=== PATIENT | female | born 1945 | race Caucasian/White ===

== ENCOUNTER 2016-03-19 | Outpatient (CLI) | payer MEDICARE, BC | END 2016-03-19 04:03 | disposition critical access hospital (66) | DX: R07.9 Chest pain, unspecified (principal) | CPT/HCPCS: A0425; A0427 ==

== ENCOUNTER 2016-03-19 | Outpatient (CLI) | payer MEDICARE, BC | END 2016-03-19 08:08 | disposition short-term general hospital (02) | DX: R07.9 Chest pain, unspecified (principal) | CPT/HCPCS: A0170; A0425; A0426 ==

== ENCOUNTER 2016-03-19 04:23 | Emergency (ER) | payer MEDICARE, BC | END 2016-03-19 08:06 | disposition short-term general hospital (02) | DX: I20.0 Unstable angina (principal); I10 Essential (primary) hypertension; E78.00 Pure hypercholesterolemia, unspecified; J45.909 Unspecified asthma, uncomplicated; Z79.82 Long term (current) use of aspirin ==

== ENCOUNTER 2016-05-15 11:16 | Outpatient (CLI) | payer MEDICARE, BC | END 2016-05-15 11:17 | disposition home or self-care (01) | DX: E87.6 Hypokalemia (principal) ==

== ENCOUNTER 2016-06-06 07:20 | Outpatient (CLI) | payer MEDICARE, BC | END 2016-06-06 07:21 | disposition home or self-care (01) | DX: I25.10 Atherosclerotic heart disease of native coronary artery without angina pectoris (principal) ==

== ENCOUNTER 2017-06-10 08:00 | Outpatient (CLI) | payer MEDICARE, BC | END 2017-06-10 08:01 | disposition home or self-care (01) | LOC: LAB.R 08:00 | PROVIDERS: ATTEND Family Medicine | DX: N39.0 Urinary tract infection, site not specified (principal) | CPT/HCPCS: 87086 ==

== ENCOUNTER 2017-09-26 08:00 | Outpatient (CLI) | payer MEDICARE, BC ==
[2017-09-26 12:14] LABS: BASOPHILS % (AUTO) 0.6 %; EOSINOPHILS # (AUTO) 0.2 10^3/uL (0.0-0.7); EOSINOPHILS % (AUTO) 4.1 %; HGB - HEMOGLOBIN 13.4 g/dL (12.0-16.0); LYMPHOCYTES # (AUTO) 2.1 10^3/uL (1.5-3.5); LYMPHOCYTES % (AUTO) 35.6 %; MEAN CORPUSCULAR HEMOGLOBIN 31.8 pg (27.0-31.0); MEAN CORPUSCULAR HGB CONC 33.6 g/dL (32.0-36.0); MEAN CORPUSCULAR VOLUME 94.6 fL (81.0-99.0); MEAN PLATELET VOLUME 8.9 fL (7.9-10.8); MONOCYTES # (AUTO) 0.7 10^3/uL (0.0-1.0); NEUTROPHILS # (AUTO) 2.9 10^3/uL (1.5-6.6); NEUTROPHILS % (AUTO) 48.7 %; PLT - PLATELET COUNT 267 10^3/uL (130-450); RED BLOOD COUNT 4.22 10^6/uL (4.20-5.40); RED CELL DISTRIBUTION WIDTH 14.3 % (12.0-15.0); WHITE BLOOD COUNT 5.9 x10^3/uL (4.8-10.8)
[2017-09-26 12:56] LABS: ALBUMIN 4.1 g/dL (3.2-5.5); ALBUMIN/GLOBULIN RATIO 1.5 (1.0-2.2); ALKALINE PHOSPHATASE 67 IU/L (42-121); ALT ALANINE AMINOTRANSFERASE 16 IU/L (10-60); AST ASPARTATE AMINOTRANSFERASE 22 IU/L (10-42); BILIRUBIN,TOTAL 0.6 mg/dL (0.2-1.0); BUN - BLOOD UREA NITROGEN 18 mg/dL (6-20); CALCIUM 9.4 mg/dL (8.5-10.3); CARBON DIOXIDE - CO2 26 mmol/L (21-32); CHLORIDE 106 mmol/L (101-111); CREATININE 0.7 mg/dL (0.4-1.0); GFR - MDRD 83 (>89); GLUCOSE 96 mg/dL (70-100); SODIUM 140 mmol/L (135-145); TOTAL PROTEIN 6.8 g/dL (6.7-8.2)
== END 2017-09-26 08:01 | disposition home or self-care (01) ==
LOC: LAB.WCP 08:00
PROVIDERS: ATTEND Family Medicine
DX: E16.1 Other hypoglycemia (principal); Z79.899 Other long term (current) drug therapy
CPT/HCPCS: 36415; 80053; 84443; 85025

== ENCOUNTER 2018-08-28 08:00 | Outpatient (CLI) | payer MEDICARE, BC | END 2018-08-28 08:01 | disposition home or self-care (01) | LOC: LAB.R 08:00 | PROVIDERS: ATTEND Family Medicine | DX: N39.0 Urinary tract infection, site not specified (principal) | CPT/HCPCS: 87086 ==

== ENCOUNTER 2018-09-03 11:56 | Outpatient (CLI) | payer MEDICARE, BC ==
[2018-09-03 19:06] LABS: CALCIUM 9.4 mg/dL (8.5-10.3); CREATININE 0.8 mg/dL (0.4-1.0)
== END 2018-09-03 11:57 | disposition home or self-care (01) ==
LOC: LAB.WCP 11:56
PROVIDERS: ATTEND Family Medicine
DX: H93.A2 Pulsatile tinnitus, left ear (principal); R51 Headache
CPT/HCPCS: 36415; 80048; 85651

== ENCOUNTER 2018-11-18 10:22 | Outpatient (CLI) | payer MEDICARE, BC ==
--- NOTE | 2018-11-18 11:38 | XRAY Report ---
Reason: RIGHT SHOULDER PAIN Procedure Date: 11/18/2018 Accession Number: [id number] / [id number] Procedure: WCP - Shoulder 2 View RT CPT Code: FULL RESULT: EXAM: RIGHT SHOULDER RADIOGRAPHY EXAM DATE: 11/18/2018 10:22 AM. CLINICAL HISTORY: RIGHT SHOULDER PAIN. COMPARISON: None. TECHNIQUE: 3 views. FINDINGS: Bones: There is a nondisplaced avulsion fracture of the distal right clavicle seen best on the transscapular Y-view. Joints: The glenohumeral joint is unremarkable. Soft tissues: The visualized hemithorax is unremarkable. No soft tissue swelling. No soft tissue calcifications. IMPRESSION: There is a nondisplaced distal right clavicular avulsion fracture. RADIA
== END 2018-11-18 23:59 | disposition home or self-care (01) ==
LOC: DI.WCP 10:22 → EDSTATUS 12:39 → DI.WCP 23:59
PROVIDERS: ATTEND Family Medicine
DX: S42.034A Nondisplaced fracture of lateral end of right clavicle, initial encounter for closed fracture (principal)

== ENCOUNTER 2018-11-27 09:04 | Outpatient (CLI) | payer MEDICARE, BC | END 2018-11-27 09:05 | disposition home or self-care (01) | LOC: LAB.WCP 09:04 | PROVIDERS: ATTEND Family Medicine | DX: R51 Headache (principal) | CPT/HCPCS: 36415; 85651; 86140 ==

== ENCOUNTER 2018-12-08 04:57 | Emergency (ER) | payer MEDICARE, BC ==
[2018-12-08 05:09] VITALS: BP 138/74
[2018-12-08] MEDS ORDERED: DEXAMETHASONE 10 MG/ML VIAL PO STA (07:45)
[2018-12-08] MEDS ORDERED: ALBUTEROL NEB 2.5 MG/3 ML INH STA (07:45)
[2018-12-08] MEDS ORDERED: CHERRY SYRUP 10 ML UDC PO ONE (07:45)
--- NOTE | 2018-12-08 07:56 | ED Physician Documentation ---
PD HPI URI - Stated complaint Stated Complaint: SORE THROAT, SOA WHILE LAYING DOWN - Chief complaint Chief Complaint: Heent - History obtained from History obtained from: Patient - History of Present Illness Associated symptoms: Nasal congestion, Rhinorrhea, Sore throat. No: Fever, Chills Contributing factors: Sick contact Improves by: Rest Worsened by: Other (Swallowing) - Additional information Additional information: 72-year-old female presents to the emergency department complaining of a sore throat for the past 2 to 3 days. Has rhinorrhea and congestion as well. States that she was treated 3 weeks ago for a "sinus infection". She took doxycycline for this. Last night she felt like she was having a hard time breathing and her throat was worsening. She was restarted on doxycycline yesterday by her doctor. Denies any fevers. Has not been using her albuterol inhaler. She is on Qvar regularly. Review of Systems Constitutional: denies: Fever, Chills Respiratory: denies: Cough GI: denies: Vomiting, Diarrhea Skin: denies: Rash Musculoskeletal: denies: Neck pain, Back pain Neurologic: denies: Headache PD PAST MEDICAL HISTORY - Past Medical History Cardiovascular: High cholesterol Respiratory: Asthma, Pneumonia Endocrine/Autoimmune: None GI: C.difficile, Diverticulitis : None HEENT: Glaucoma Psych: Claustrophobia Musculoskeletal: Osteoarthritis Derm: None - Past Surgical History Past Surgical History: Yes General: Appendectomy, Colonoscopy Ortho: Knee replacement, Carpal Tunnel surgery /[employer]: Hysterectomy, Other HEENT: Tonsil/Adenoidectomy - Present Medications Home Medications: Ambulatory Orders Medication Instructions Recorded Confirmed Albuterol [Ventolin Hfa] 2 puffs INH Q4H PRN 09/18/12 12/29/14 Ciclesonide [Alvesco] 6.1 gm IH BID 09/18/12 12/29/14 Potassium Chloride [Klor-Con] 0 meq PO 09/18/12 12/29/14 Pravastatin Sodium 10 mg PO HS 09/18/12 12/29/14 Triamterene/Hydrochlorothiazid 1 each PO DAILY 09/18/12 12/29/14 [Triamterene-Hctz 37.5-25 mg Tb] Aspirin [Aspir 81] 81 mg PO DAILY 09/28/12 12/29/14 Loratadine [Claritin] 10 mg PO DAILY 05/04/13 12/29/14 Mometasone Furoate [Nasonex] 1 spray NS BID #1 spray.pump 12/08/18 predniSONE [Prednisone] 20 mg PO DAILY #7 tablet 12/08/18 - Allergies Allergies/Adverse Reactions: Allergies Allergy/AdvReac Type Severity Reaction Status Date / Time Penicillins Allergy Severe Respiratory Verified 12/08/18 05:09 celecoxib [From Celebrex] Allergy Intermediate Hives Verified 12/08/18 05:09 rofecoxib [From Vioxx] Allergy Intermediate Hives Verified 12/08/18 05:09 Sulfa (Sulfonamide Allergy Unknown unknown Verified 12/08/18 05:09 Antibiotics) scopolamine AdvReac Intermediate Hallucinati Verified 12/08/18 05:09 ons - Social History Does the pt smoke?: No Smoking Status: Never smoker Does the pt drink ETOH?: No Does the pt have substance abuse?: No - Immunizations Immunizations are current?: Yes - POLST Patient has POLST: No PD ED PE NORMAL - Vitals Vital signs reviewed: Yes - General General: Alert and oriented X 3, No acute distress, Well developed/nourished - HEENT HEENT: PERRL, Ears normal, Moist mucous membranes, Other (Mild posterior oropharyngeal erythema without tonsillar exudates. Uvula midline. No trismus. Normal phonation.) - Neck Neck: Supple, no meningeal sign, Other (Mild cervical lymphadenopathy) - Cardiac Cardiac: RRR, Strong equal pulses - Respiratory Respiratory: No respiratory distress, Clear bilaterally - Abdomen Abdomen: Soft, Non tender, Non distended - Derm Derm: Warm and dry - Extremities Extremities: No edema - Neuro Neuro: Alert and oriented X 3 - Psych Psych: Normal mood, Normal affect Results - Vitals Vitals: Vital Signs - 24 hr 12/08/18 05:04 Temperature 37.2 C Heart Rate 69 Respiratory 17 Rate Blood Pressure 138/74 H O2 Saturation 97 Oxygen O2 Source Room air - Labs Labs: Laboratory Tests 12/08/18 05:10 Group A Strep Rapid Negative PD MEDICAL DECISION MAKING - ED course Complexity details: reviewed results, re-evaluated patient, considered differential, d/w patient, d/w family ED course: 72-year-old female with what appears to be a viral upper respiratory infection. Strep test is negative. No fevers. No indication for antibiotics at this time. We will have her stop the doxycycline. Given a dose of dexamethasone here. Also given albuterol treatment. We will continue supportive care and follow-up with her doctor. Patient counseled regarding signs and symptoms for which I believe and urgent re-evaluation would be necessary. Patient with good understanding of and agreement to plan and is comfortable going home at this time This document was made in part using voice recognition software. While efforts are made to proofread this document, sound alike and grammatical errors may occur. Departure - Departure Disposition: 01 Home, Self Care Clinical Impression: Viral pharyngitis, Viral URI Condition: Good Instructions: ED Pharyngitis Viral Follow-Up: Sami Barnes MD [Primary Care Provider] - As Needed Prescriptions: Mometasone Furoate [Nasonex] 1 spray NS BID #1 spray.pump predniSONE [Prednisone] 20 mg PO DAILY #7 tablet Comments: Use the medications as prescribed. Return if you worsen. You can stop the doxycycline. There is no evidence of a bacterial infection at this time.
== END 2018-12-08 08:31 | disposition home or self-care (01) ==
LOC: ED 04:57
DX: J02.8 Acute pharyngitis due to other specified organisms (principal); B97.89 Other viral agents as the cause of diseases classified elsewhere; J06.9 Acute upper respiratory infection, unspecified; J45.909 Unspecified asthma, uncomplicated; Z79.82 Long term (current) use of aspirin
CPT/HCPCS: 87070; 87430; 94640; 94664; 99283; 99284; A9270

== ENCOUNTER 2019-01-06 15:00 | Outpatient (CLI) | payer MEDICARE, BC ==
--- NOTE | 2019-01-07 08:38 | Mammography Report ---
Reason: ANNUAL MAMMO Procedure Date: 01/06/2019 Accession Number: [id number] / [id number] Procedure: [facility] - Screening Mammo w/Hussain CPT Code: Final Report FULL RESULT: EXAM: Screening Mammo w/Hussain DATE: 01/06/2019 3:59 PM CLINICAL HISTORY: Screening encounter. History of excisional left breast biopsy for benign pathology. Family history of breast cancer in a sister at the age of 55 and a sister at the age of 62. TECHNIQUE: (B) - Bilateral CC and MLO views were obtained. Right laterally exaggerated CC view was obtained. COMPARISON: 02/16/2015 through 12/28/2009. PARENCHYMAL PATTERN: (A) - The breast(s) demonstrate(s) scattered fibroglandular densities. FINDINGS: Postsurgical changes in the left breast as well as typically benign coarse calcifications are again seen. There are no suspicious masses, calcifications, or areas of distortion. IMPRESSION: Benign findings. BI-RADS category 2. RECOMMENDATION: (ANNUAL) - Recommend routine annual screening mammography. BI-RADS CATEGORY: (2) - Benign Findings. STANDARD QUALIFYING STATEMENTS: 1. This examination was not reviewed with the aid of Computer-Aided Detection (CAD). 2. A negative or benign imaging report should not preclude biopsy if clinically suspicious findings are present. 3. Dense breasts may obscure an underlying neoplasm. 4. This examination was reviewed with the aid of 3D breast imaging (tomosynthesis).
== END 2019-01-06 15:01 | disposition home or self-care (01) ==
LOC: DI 15:00
DX: Z12.31 Encounter for screening mammogram for malignant neoplasm of breast (principal); Z80.3 Family history of malignant neoplasm of breast
CPT/HCPCS: 77063; 77067

== ENCOUNTER 2022-02-26 09:23 | Outpatient (CLI) | payer MEDICARE, BC | END 2022-02-26 09:24 | disposition EMS.NT | LOC: EMS 09:23 | DX: Z03.89 Encounter for observation for other suspected diseases and conditions ruled out (principal) ==